=== PATIENT | male | born 1980 | race African-American/Black ===

== ENCOUNTER 2016-08-30 23:21 | Emergency (ER) | payer OTHER ==
--- NOTE | 2016-08-30 23:29 | EDPHY ---
H & P HPI/ROS: HPI CHIEF COMPLAINT: "I am dehydrated from walking today" HISTORY OF PRESENT ILLNESS: This patient very pleasant 35-year-old male significant past medical history for ulcer colitis, PTSD and attention deficit hyperactivity disorder, he presents emergency room by EMS for feeling dehydrated. Patient states that he was walking from the homeless senior care today to [facility] back to the homeless senior care did not have any other way of transportation he says it is a prolonged walk he did not take much p. o. intake today. He is concerned that he is dehydrated. Upon arrival here in the emergency room he appears well nontoxic in no acute distress. He is requesting something to drink. We have offered him water or juice he decided that he would like a soda. Explained so does not very well hydrating. He is agreeable for water. He has no focal medical complaints specifically for denies fever, chest pain, shortness of breath, dizziness, lightheadedness, generalized weakness. Past Medical History: Attention deficit hyperactivity disorder, PTSD, also colitis Past Surgical History: No recent surgical history Social History: homeless, denies drugs alcohol tobacco products, states he recently moved from [place] to [place]. Has been in [place] for 3 weeks Family History: Noncontributory ROS REVIEW OF SYSTEMS: A comprehensive 10 point review of systems is otherwise negative aside from elements mentioned in the history of present illness. Exam Constitutional appears well nontoxic, does not appeared dehydrated, well hydrated, but mucous membranes, triage nursing summary reviewed, vital signs reviewed, awake/alert. (slightly tachy 106) Eyes normal conjunctivae and sclera, EOMI, PERRLA. HENT normal inspection, atraumatic, moist mucus membranes, no epistaxis, neck supple/ no meningismus, no raccoon eyes. Respiratory clear to auscultation bilaterally, normal breath sounds, no respiratory distress, no wheezing. Cardiovascular rate normal, regular rhythm, no murmur, no edema, distal pulses normal. Gastrointestinal soft, non-tender, no rebound, no guarding, normal bowel sounds, no distension, no pulsatile mass. Genitourinary no CVA tenderness. Musculoskeletal no midline vertebral tenderness, full range of motion, no calf swelling, no tenderness of extremities, no meningismus, good pulses, neurovascularly intact. Skin pink, warm, & dry, no rash, skin atraumatic. Neurologic awake, alert and oriented x 3, AAOx3, moves all 4 extremities equally, motor intact, sensory intact, CN II-XII intact, normal cerebellar, normal vision, normal speech. Psychiatric normal mood/affect. Heme/Lymph/Immune no lymphadenopathy. Differential Diagnosis: includes but is not limited to in a particular order dehydration, electrolyte disturbance, senior care seeking. Medical Decision Making: Plan for this patient he appears well nontoxic vital signs are stable, does not appear dehydrated he will be given p.o. fluids water and at his request so to drink. We will re-evaluate him shortly. 2333: Patient is up walking around emergency room talking to staff. He is asking about a senior care. He p. o. challenge and drank water. He has no focal medical complaints. He appears well nontoxic. Does not appear acutely severely dehydrated. Does not require blood work IV establishment. Given that he is walking around emergency room talking multiple staff asking for senior care I will allow him to go home will try to provide resources for him to go to a local senior care. Source: Patient, EMS Allergies/Adverse Reactions: No Known Allergies Allergy (Unverified 08/30/16 23:27) Home Medications: Medication Instructions Recorded Adderall 10 mg Tablet 08/30/16 Departure - Departure Disposition: Home, Routine, Self-Care Clinical Impression: Dehydration symptoms Condition: Good Instructions: Dehydration (ED) Referrals: Patient,NotPresent [Primary Care Provider] - As per Instructions
[2016-08-30 23:36] VITALS: BP 144/74; PULSE 88; RESP 16; TEMP 98.6; O2SAT 96
== END 2016-08-30 23:41 | disposition home or self-care (01) ==
DX: E86.0 Dehydration (principal)

== ENCOUNTER 2016-08-31 13:55 | Inpatient (IN) | payer OTHER ==
--- NOTE | 2016-08-31 14:10 | EDPHY ---
HPI/HX/ROS/PE/MDM Narrative: CHIEF COMPLAINT: M1 Hold, gravely disabled HISTORY OF PRESENT ILLNESS: The patient is a 35-year-old male with a history of schizophrenia, PTSD, and ADHD who presents on M1 Hold by police for anxiety, paranoia, and hallucinations. Per EMS he has been seeing shadows and lights. He denies HI or SI. No fever, chills, chest pain, shortness of breath, palpitations , vomiting, diarrhea, urinary complaints, headache, lightheadedness. Patient had been brought to the ED earlier by paramedics, requesting assistance with extreme anxiety. He was responding to external stimuli, could not cooperate with requests by staff to begin his treatment. Patient wandered around ED and then left ED. He was noted to be very tachycardic by EMS. After leaving ED, patient placed on [place] hold by police for gravely disabled from his mental health issues. Very agitated on arrival to ED. No further information available from patient. REVIEW OF SYSTEMS: Unable to obtain secondary to clinical condition. PAST MEDICAL HISTORY: PTSD, ADHD, schizophrenia. Ulcerative colitis SOCIAL HISTORY: Moved to [place] from [place] 3 weeks ago. VITAL SIGNS: Reviewed by me. HR 140s. GENERAL: Well-developed, well-nourished, very anxious, paranoid, agitated, spitting on occasion. HEENT: Atraumatic. Eyes: No icterus, no injection. Flutters eyelids. Pupils 5mm. Mouth: moist mucous membranes. No erythema or lesions. Neck: supple with no adenopathy. LUNGS: Clear to auscultation bilaterally, no wheezes, rhonchi or rales. CARDIAC: Regular tachycardia, no rubs, murmurs or gallops. ABDOMEN: Soft, nontender, nondistended, bowel sounds normal. BACK: No CVA tenderness. EXTREMITIES: No trauma. No edema. Range of motion is normal throughout. NEURO: Alert, unable to assess orientation, grossly nonfocal. SKIN: Warm and dry, no rash. PSYCHIATRIC: Agitated, anxious, responding to external stimuli. Portions of this note were transcribed by a medical planner. I personally performed a history, physical exam, medical decision making, and confirmed accuracy of information the transcribed note. ED Course: This patient was initially brought in by EMS not on a hold but would not stay in his room. He appeared to be responding to external stimuli and began to throw his belongings about the room. Police were notified and he was contacted outside the hospital and placed on M1 Hold for grave disability. Upon returning he was placed in spit mask. After my exam an IV was established. 2mg IV Ativan and 10mg IM Zyprexa administered. Labs ordered. The patient is febrile at 38.3 and tachycardic. He will receive IV fluids and have additional labs drawn including lactic acid and CK/CPK. Chest x-ray ordered. CHEM panel shows creatinine of 1.4 indicating renal failure. Creatine kinase elevated at 1518 indicating rhabdomyolysis. Plan for patient admission. Suspect fever as a result of drugs/ over agitation. No clear infectious source identified. Temp resolved without treatment. Will monitor and continue to search for any infectious source. 1633: Consulted with Dr. Solano, hospitalist. She accepts admission. Fluids continued. CXR demonstrates no pneumonia, possible bronchitis. Independently viewed by me. Urine not concerning for infection. NO diarrhea noted. No complaints of abdominal pain. MDM: Diff dx considered included drug or alcohol overdose, drug or alcohol withdrawl , rhabdomyolysis, infection, sepsis, hyperthyroid, mental health disease, pneumonia. - Data Points Laboratory Results: Laboratory Results 08/31/16 15:45 08/31/16 14:25 08/31/16 08/31/16 08/31/16 15:45 15:18 15:18 WBC 15.19 10^3/uL H 10^3/uL (3.80-9.50) RBC 4.82 10^6/uL 10^6/uL (4.40-6.38) Hgb 14.3 g/dL g/dL (13.7-17.5) Hct 42.1 % % (40.0-51.0) MCV 87.3 fL fL (81.5-99.8) MCH 29.7 pg pg (27.9-34.1) MCHC 34.0 g/dL g/dL (32.4-36.7) RDW 14.3 % % (11.5-15.2) Plt Count 245 10^3/uL 10^3/uL (150-400) MPV 9.9 fL fL (8.7-11.7) Neut % (Auto) 85.2 % H % (39.3-74.2) Lymph % (Auto) 8.0 % L % (15.0-45.0) Isabella % (Auto) 6.3 % % (4.5-13.0) Eos % (Auto) 0.0 % L % (0.6-7.6) Baso % (Auto) 0.2 % L % (0.3-1.7) Nucleat RBC Rel Count 0.0 % % (0.0-0.2) Absolute Neuts (auto) 12.95 10^3/uL H 10^3/uL (1.70-6.50) Absolute Lymphs (auto) 1.22 10^3/uL 10^3/uL (1.00-3.00) Absolute Monos (auto) 0.95 10^3/uL H 10^3/uL (0.30-0.80) Absolute Eos (auto) 0.00 10^3/uL L 10^3/uL (0.03-0.40) Absolute Basos (auto) 0.03 10^3/uL 10^3/uL (0.02-0.10) Absolute Nucleated RBC 0.00 10^3/uL 10^3/uL (0-0.01) Immature Gran % 0.3 % % (0.0-1.1) Immature Gran # 0.04 10^3/uL 10^3/uL (0.00-0.10) PT 14.3 SEC SEC (12.0-15.0) INR 1.12 (0.83-1.16) APTT 32.6 SEC SEC (23.0-38.0) VBG Lactic Acid 0.9 mmol/L mmol/L (0.7-2.1) Sodium Potassium Chloride Carbon Dioxide Anion Gap BUN Creatinine Estimated GFR Glucose Calcium Total Bilirubin Conjugated Bilirubin Unconjugated Bilirubin AST ALT Alkaline Phosphatase Creatine Kinase CK-MB (CK-2) Fraction CK-MB (CK-2) % Creatine Kinase Interp Total Protein Albumin Salicylates Acetaminophen Ethyl Alcohol 08/31/16 08/31/16 14:25 14:25 WBC RBC Hgb Hct MCV MCH MCHC RDW Plt Count MPV Neut % (Auto) Lymph % (Auto) Isabella % (Auto) Eos % (Auto) Baso % (Auto) Nucleat RBC Rel Count Absolute Neuts (auto) Absolute Lymphs (auto) Absolute Monos (auto) Absolute Eos (auto) Absolute Basos (auto) Absolute Nucleated RBC Immature Gran % Immature Gran # PT INR APTT VBG Lactic Acid Sodium 144 mEq/L mEq/L (134-144) Potassium 4.7 mEq/L mEq/L (3.5-5.2) Chloride 102 mEq/L mEq/L (97-110) Carbon Dioxide 19 mEq/l L mEq/l (22-31) Anion Gap 23 mEq/L H mEq/L (8-16) BUN 12 mg/dL mg/dL (7-23) Creatinine 1.4 mg/dL H mg/dL (0.7-1.3) Estimated GFR 58 Glucose 105 mg/dL H mg/dL (70-100) Calcium 10.2 mg/dL mg/dL (8.5-10.4) Total Bilirubin 1.4 mg/dL mg/dL (0.1-1.4) Conjugated Bilirubin 0.7 mg/dL H mg/dL (0.0-0.5) Unconjugated Bilirubin 0.7 mg/dL mg/dL (0.0-1.1) AST 83 IU/L H IU/L (17-59) ALT 36 IU/L IU/L (21-72) Alkaline Phosphatase 81 IU/L IU/L (38-126) Creatine Kinase 1518 IU/L H IU/L (0-224) CK-MB (CK-2) Fraction 8.81 ng/mL H ng/mL (0-3.19) CK-MB (CK-2) % 0.6 % % (0.0-4.0) Creatine Kinase Interp NEGATIVE (NEGATIVE) Total Protein 9.0 g/dL H g/dL (6.3-8.2) Albumin 5.3 g/dL H g/dL (3.5-5.0) Salicylates < 1.0 mg/dL L mg/dL (2.0-20.0) Acetaminophen < 10 mcg/mL L mcg/mL (10.0-30.0) Ethyl Alcohol < 10 mg/dL mg/dL (0-10) Medications Given: Discontinued Medications Acetaminophen (Tylenol) 1,000 mg PO EDNOW ONE Stop: 08/31/16 15:01 Last Admin: 08/31/16 15:53 Dose: Not Given Sodium Chloride (Ns) 1,000 mls @ 0 mls/hr IV ONCE ONE PRN Reason: Wide Open Stop: 08/31/16 14:26 Last Admin: 08/31/16 14:25 Dose: 1,000 mls Sodium Chloride (Ns) 1,000 mls @ 0 mls/hr IV ONCE ONE PRN Reason: Wide Open Stop: 08/31/16 16:01 Last Admin: 08/31/16 16:01 Dose: 1,000 mls Lorazepam (Ativan Injection) 2 mg IVP EDNOW ONE Stop: 08/31/16 14:21 Last Admin: 08/31/16 14:30 Dose: 2 mg Olanzapine (Zyprexa Im Injection) 10 mg IM EDNOW ONE Stop: 08/31/16 14:28 Last Admin: 08/31/16 14:41 Dose: 10 mg General Smoking Status: Unknown if ever smoked Initial Vital Signs: Initial Vital Signs Temperature (C) 38.3 C 08/31/16 14:41 Heart Rate 128 H 08/31/16 14:41 Respiratory Rate 20 08/31/16 14:41 Blood Pressure 142/88 H 08/31/16 14:41 O2 Sat (%) 98 08/31/16 14:41 O2 Delivery Mode Nasal Cannula O2 (L/minute) 3 Allergies/Adverse Reactions: No Known Allergies Allergy (Unverified 08/30/16 23:27) Home Medications: Medication Instructions Recorded Dextroamphetamine/Amphetamine 30 mg PO DAILY 08/30/16 [Adderall Xr 30 mg Capsule] Mesalamine [Asacol HD 800 mg] 1,600 mg PO BID 08/31/16 Departure - Departure Disposition: [facility] Inpatient Acute Clinical Impression: Paranoia, Hallucinations, Renal failure Rhabdomyolysis Qualifiers: Rhabdomyolysis type: non-traumatic Qualified Code(s): M62.82 - Rhabdomyolysis Condition: Fair Report Scribed for: Maru Perdue Report Scribed by: Cb Burks Date of Report: 08/31/16 Time of Report: 14:28
[2016-08-31] MEDS ORDERED: LORazepam 2 MG/ML INJ ONE (14:19)
[2016-08-31] MEDS ORDERED: LORazepam 2 MG/ML INJ IVP ONE (14:20)
[2016-08-31] MEDS ORDERED: NS 1,000 ML IV ONE ×3 (14:25→16:15)
[2016-08-31] MEDS ORDERED: OLANZapine 10 MG/2 ML VIAL IM ONE ×2 (14:27→14:37)
[2016-08-31 14:44] LABS: ANION GAP 23 mEq/L (8-16); CALCIUM 10.2 mg/dL (8.5-10.4); CARBON DIOXIDE 19 mEq/l (22-31); CHLORIDE 102 mEq/L (97-110); CREATININE 1.4 mg/dL (0.7-1.3); ETHANOL SERUM < 10 mg/dL (0-10); GLOMERULAR FILTRATION RATE 58; GLUCOSE 105 mg/dL (70-100); POTASSIUM 4.7 mEq/L (3.5-5.2); SALICYLATE < 1.0 mg/dL (2.0-20.0); SODIUM 144 mEq/L (134-144)
[2016-08-31] MEDS ORDERED: ACETAMINOPHEN 500 MG TAB PO ONE (15:00)
[2016-08-31 15:18] LABS: ALANINE AMINOTRANSFERASE 36 IU/L (21-72); ALBUMIN 5.3 g/dL (3.5-5.0); ALKALINE PHOSPHATASE 81 IU/L (38-126); ASPARTATE AMINOTRANSFERASE 83 IU/L (17-59); BILIRUBIN,TOTAL 1.4 mg/dL (0.1-1.4); BILIRUBIN-CONJUGATED 0.7 mg/dL (0.0-0.5); BILIRUBIN-UNCONJUGATED 0.7 mg/dL (0.0-1.1)
[2016-08-31 15:38] LABS: CK-MB INTERPRETATION NEGATIVE (NEGATIVE)
[2016-08-31 15:40] LABS: CREATINE KINASE-MB FRACTION 8.81 ng/mL (0-3.19)
[2016-08-31 15:40] LABS: INR 1.12 (0.83-1.16); PROTIME(PATIENT) 14.3 SEC (12.0-15.0)
[2016-08-31 15:41] LABS: APTT 32.6 SEC (23.0-38.0)
[2016-08-31 15:58] LABS: % IMMATURE GRANULYOCYTES 0.3 % (0.0-1.1); ABSOLUTE IMMATURE GRANULOCYTES 0.04 10^3/uL (0.00-0.10); ADD DIFF? NO; ADD MORPH? NO; ADD SCAN? NO; ATYPICAL LYMPHOCYTE FLAG 20 (0-99); FRAGMENT RBC FLAG 0 (0-99); HEMATOCRIT 42.1 % (40.0-51.0); HEMOGLOBIN 14.3 g/dL (13.7-17.5); LEFT SHIFT FLG 0 (0-99); LIPEMIA HEMOLYSIS FLAG 90 (0-99); MEAN CELL HEMOGLOBIN 29.7 pg (27.9-34.1); MEAN CELL VOLUME 87.3 fL (81.5-99.8); MEAN PLATELET VOLUME 9.9 fL (8.7-11.7); PLATELET CLUMPS FLAG 0 (0-99); PLATELET COUNT 245 10^3/uL (150-400); RED BLOOD CELL COUNT 4.82 10^6/uL (4.40-6.38); RED CELL DISTRIBUTION WIDTH 14.3 % (11.5-15.2)
[2016-08-31] MEDS ORDERED: ONDANSETRON DISINTEGRATING 4 MG TAB PO PRN (17:29)
[2016-08-31] MEDS ORDERED: LORazepam 0.5 MG TAB PO PRN (17:29)
[2016-08-31] MEDS ORDERED: ONDANSETRON 4 MG/2 ML VIAL IVP PRN (17:29)
[2016-08-31] MEDS ORDERED: ACETAMINOPHEN 325 MG TAB PO PRN (17:29)
[2016-08-31] MEDS ORDERED: OLANZapine 5 MG TAB PO PRN (17:29)
[2016-08-31] MEDS ORDERED: NS 1,000 ML IV SCH (17:30)
[2016-08-31 18:06] LABS: COLOR YELLOW; LEUKOCYTE ESTERASE,URINE NEGATIVE (NEGATIVE); NITRITE,URINE NEGATIVE (NEGATIVE)
[2016-08-31 18:09] LABS: MUCUS TRACE /lpf (NONE-1+)
--- NOTE | 2016-08-31 19:14 | GHP ---
[f rep st] HISTORY AND PHYSICAL DATE OF ADMISSION: 08/31/2016 CHIEF COMPLAINT: Dehydration. HISTORY OF PRESENT ILLNESS: The patient is a 35-year-old male with a history of schizophrenia, PTSD and attention deficit disorder who recently moved to [place] from [place], [place]. He presented to the ED last night complaining of feeling dehydrated. At the time of presentation, he had reported walking from the homeless long-term to the [facility] and back to the homeless long-term without any p.o. intake. He reportedly felt very dehydrated and was requesting something to drink. At that time, he had no focal medical complaints such as fever, chills, nausea, vomiting, diarrhea, chest pain, shortness of breath, or weakness. He apparently became agitated and hallucinatory while in the emergency department and ultimately received 2 mg of IV Ativan, followed by 10 mg of IM Zyprexa. During my evaluation, the patient is unable to give me a history due to significant sedation. He is, however, protecting his airway, satting 93% on room air. History is obtained from chart review and from the emergency department physician. Given his change in status with increased anxiety, agitation, and hallucinations , there was concern for his well being, he was ultimately placed on M1 hold due to being gravely disabled. The day following his presentation, laboratory data was obtained which revealed elevated creatinine and elevated CK and a leukocytosis. At that point, the hospital medicine department was contacted for admission due to his lab abnormalities. Following the results of his labs, the patient was given 3 L of IV saline in the setting of tachycardia with a heart rate to 128. His heart rate has improved since receiving IV fluids. His chest x-ray is negative for pneumonia and shows just a mild bronchitis. He is admitted to the hospital for further management of his acute kidney injury and rhabdomyolysis. PAST MEDICAL HISTORY: 1. History of colitis. 2. Attention deficit disorder. 3. History of PTSD. 4. Schizophrenia PAST SURGICAL HISTORY: Again history is unobtainable, but there is nothing reported in the chart. SOCIAL HISTORY: Per chart review, the patient is homeless. He has denied drug , alcohol, or tobacco use. He recently moved to [place] from [place] and has been here approximately 3 weeks. FAMILY HISTORY: Noncontributory. REVIEW OF SYSTEMS: Review of systems were unobtainable due the patient's sedation. OBJECTIVE: VITAL SIGNS: Most recent temperature is 37.3, blood pressure 122/67 , heart rate 100, respiratory rate 16. He is 91% on 2 L of oxygen. GENERAL: The patient is sedated and arousable only to painful stimuli. He is not able to provide a history. HEENT: Head is atraumatic, normocephalic. Pupils equal , round, reactive to light. Extraocular muscles intact. Oropharynx is clear. Mucous membranes are moist. NECK: Supple. There is no JVD. HEART: Regular rate and rhythm without murmur. LUNGS: Reveal coarse breath sounds. ABDOMEN: Soft, nondistended, nontender with normoactive bowel sounds. EXTREMITIES: Without cyanosis, clubbing, or edema. NEUROLOGIC: Exam is grossly nonfocal. LABORATORY DATA: CBC reveals a white blood cell count of 15,000 with 85% neutrophils. INR is 1.1. Lactic acid is normal at 0.9. Complete metabolic panel is remarkable for an anion gap metabolic acidosis with a bicarb of 19 and anion gap of 23. His creatinine is 1.4. AST 83, ALT 36. His CK is 1518. Salicylates, ethyl alcohol levels are negative. Urinalysis and urine drug screen are pending as are serum osmolality and blood cultures. ASSESSMENT AND PLAN: The patient is a 35-year-old male with a history of schizophrenia and PTSD who presented to the emergency department complaining of dehydration. 18 hours later, he became acutely agitated, requiring IV Ativan and IM Zyprexa. Labs were drawn at that time which were abnormal and I am asked to admit him to the hospital for further management. 1. Acute encephalopathy. At this time, he is sedated after receiving 2 mg of IV Ativan and 10 mg of IM Zyprexa. He is protecting his airway. We will continue to monitor him and I expect his mentation will clear as these medications wear off. 2. Agitation. +H/O schizophrenia. On M1 hold due to being gravely disabled. He has a history of PTSD and ADD. UDS positive for amphetamines. He takes Adderall which we will plan to hold for now. Will continue a lower dose p.r.n. Ativan and Zyprexa as needed for recurrent agitation, and he will need a psych eval once he is medically cleared. 3. Rhabdomyolysis. This is mild. There is no history of trauma. This may be in the setting of overexertion given his long walk around the [place] with little oral intake today. He has received 3 L of normal saline. We will continue normal saline at 150 an hour and recheck this in the morning. 4. Acute kidney injury. His creatinine is 1.4. His baseline is unknown. We will check a urine sodium and urine creatinine to calculate a FENa for further evaluation. I suspect prerenal given his story of volume depletion upon presentation. IV fluids as above, and will recheck this in the morning. 5. Anion gap metabolic acidosis. Again, I suspect volume depletion as an etiology. A serum osmolality level is currently pending, but per my calculation of his serum osmolality, he does not have an increased osmolal gap which lowers my suspicion for other ingestion, such as ethylene glycol or methanol. His aspirin level is negative. His lactic acid is normal. Will hydrate as above and recheck in the morning. 6. Leukocytosis. He may be hemoconcentrated. He has received 3 L of fluids since his first labs are drawn. He is currently afebrile. His chest x-ray is clear. A urinalysis is pending. He did not present with localizing infectious symptoms. Therefore, my suspicion for an infectious process is low and his normal lactate is reassuring. We will recheck this in the morning after hydration and monitor him closely for any signs or symptoms of infection or fevers. Would draw blood cultures should he spike a fever. 7. Elevated transaminases. His AST is very mildly elevated. He has a nontender abdominal exam. His alcohol level is negative though his AST, ALT ratio could be suggestive of alcohol etiology. We will trend this for now. Should he develop abdominal pain or his LFTs trend up, would consider imaging with ultrasound. 8. Code status. Patient is full code by default. 9. DVT prophylaxis. Patient is low risk; however, should he require a prolonged hospitalization, would consider Lovenox. Will place SCDs for now given his decreased mobility in the setting of sedation. 10. Disposition. Patient is admitted to observation. If he is medically cleared tomorrow, he can undergo a psych evaluation for consideration of inpatient psych needs. /[id number]/MODL MTDD
[2016-08-31 21:06] LABS: ANION GAP 13 mEq/L (8-16); CALCIUM 8.5 mg/dL (8.5-10.4); CARBON DIOXIDE 21 mEq/l (22-31); CHLORIDE 107 mEq/L (97-110); CREATININE 1.1 mg/dL (0.7-1.3); GLOMERULAR FILTRATION RATE > 60; GLUCOSE 82 mg/dL (70-100); POTASSIUM 4.5 mEq/L (3.5-5.2); SODIUM 141 mEq/L (134-144)
[2016-08-31 21:25] LABS: CK-MB INTERPRETATION NEGATIVE (NEGATIVE)
[2016-08-31 21:44] LABS: CREATINE KINASE-MB FRACTION 6.26 ng/mL (0-3.19)
[2016-09-01 04:39] LABS: % IMMATURE GRANULYOCYTES 0.4 % (0.0-1.1); ABSOLUTE IMMATURE GRANULOCYTES 0.05 10^3/uL (0.00-0.10); ADD DIFF? NO; ADD MORPH? NO; ADD SCAN? NO; ATYPICAL LYMPHOCYTE FLAG 30 (0-99); FRAGMENT RBC FLAG 0 (0-99); HEMATOCRIT 38.2 % (40.0-51.0); HEMOGLOBIN 12.8 g/dL (13.7-17.5); LEFT SHIFT FLG 0 (0-99); LIPEMIA HEMOLYSIS FLAG 80 (0-99); MEAN CELL HEMOGLOBIN CONCENTR. 33.5 g/dL (32.4-36.7); MEAN CELL VOLUME 86.6 fL (81.5-99.8); MEAN PLATELET VOLUME 10.1 fL (8.7-11.7); PLATELET CLUMPS FLAG 10 (0-99); PLATELET COUNT 233 10^3/uL (150-400); RED BLOOD CELL COUNT 4.41 10^6/uL (4.40-6.38); RED CELL DISTRIBUTION WIDTH 14.5 % (11.5-15.2)
[2016-09-01 04:55] LABS: ALANINE AMINOTRANSFERASE 36 IU/L (21-72); ALBUMIN 3.2 g/dL (3.5-5.0); ALKALINE PHOSPHATASE 45 IU/L (38-126); ANION GAP 10 mEq/L (8-16); ASPARTATE AMINOTRANSFERASE 43 IU/L (17-59); BILIRUBIN,TOTAL 1.2 mg/dL (0.1-1.4); CALCIUM 7.4 mg/dL (8.5-10.4); CARBON DIOXIDE 17 mEq/l (22-31); CHLORIDE 114 mEq/L (97-110); CREATININE 0.9 mg/dL (0.7-1.3); GLOMERULAR FILTRATION RATE > 60; GLUCOSE 70 mg/dL (70-100); POTASSIUM 3.7 mEq/L (3.5-5.2); SODIUM 141 mEq/L (134-144); TOTAL PROTEIN 5.8 g/dL (6.3-8.2)
[2016-09-01 05:49] LABS: CK-MB INTERPRETATION NEGATIVE (NEGATIVE)
[2016-09-01 05:54] LABS: CREATINE KINASE-MB FRACTION 3.45 ng/mL (0-3.19)
[2016-09-01] MEDS: MESALAMINE 800 MG TAB.DR PO SCH ×2 (08:53→21:03)
--- NOTE | 2016-09-01 16:54 | HOSPPROG ---
Hospitalist Progress Note Assessment/Plan: # SIRS - no clear infection but borderline fever, elev WBC, and tachy; both could be explained by other mechanisms than sepsis - BCx pending, UA bland, mild bronchitis on CXR - given these symptoms, will monitor overnight # mild rhabdo - improved, downtrending # mild NAGMA - change to LR # agitation/bipolar/PTSD - on M1 hold; needs TLC eval, likely medically cleared tomorrow # low TSH with nl T3/T4 - outpatient f/u ## chart reviewed CXR personally viewed and interpreted discussed with Dr Kowalski on ICU rounds - will follow tachycardia Subjective: denies anxiety but appears nervous Objective: Vital Signs Temp Pulse Resp BP Pulse Ox 38.1 C 121 H 20 104/53 L 96 09/01/16 15:48 09/01/16 15:48 09/01/16 15:48 09/01/16 15:48 09/01/16 15:48 Laboratory Results 09/01/16 04:20 09/01/16 04:20 08/31/16 09/01/16 09/02/16 05:59 05:59 05:59 Intake Total 3950 Output Total 275 Balance 3675 PT 14.3 SEC (12.0-15.0) 08/31/16 15:18 INR 1.12 (0.83-1.16) 08/31/16 15:18 - Physical Exam Constitutional: other (anxious) Cardiovascular: no murmur, rub, or gallop, tachycardia Respiratory: no respiratory distress, no rales or rhonchi, clear to auscultation Gastrointestinal: normoactive bowel sounds, soft, non-tender abdomen, no palpable masses ICD10 Worksheet Patient Problems: Problems Problem Status Onset Paranoia Acute Hallucinations Acute Renal failure Acute Rhabdomyolysis Acute
[2016-09-01] MEDS ORDERED: LR 1,000 ML IV SCH (17:00)
[2016-09-02 04:40] LABS: % IMMATURE GRANULYOCYTES 0.4 % (0.0-1.1); ABSOLUTE IMMATURE GRANULOCYTES 0.05 10^3/uL (0.00-0.10); ADD DIFF? NO; ADD MORPH? NO; ADD SCAN? NO; ATYPICAL LYMPHOCYTE FLAG 40 (0-99); FRAGMENT RBC FLAG 0 (0-99); HEMATOCRIT 39.8 % (40.0-51.0); HEMOGLOBIN 13.8 g/dL (13.7-17.5); LEFT SHIFT FLG 0 (0-99); LIPEMIA HEMOLYSIS FLAG 90 (0-99); MEAN CELL HEMOGLOBIN 31.1 pg (27.9-34.1); MEAN CELL HEMOGLOBIN CONCENTR. 34.7 g/dL (32.4-36.7); MEAN CELL VOLUME 89.6 fL (81.5-99.8); MEAN PLATELET VOLUME 10.5 fL (8.7-11.7); PLATELET CLUMPS FLAG 0 (0-99); PLATELET COUNT 224 10^3/uL (150-400); RED BLOOD CELL COUNT 4.44 10^6/uL (4.40-6.38); RED CELL DISTRIBUTION WIDTH 14.3 % (11.5-15.2)
[2016-09-02 04:59] LABS: ANION GAP 11 mEq/L (8-16); CALCIUM 8.7 mg/dL (8.5-10.4); CARBON DIOXIDE 21 mEq/l (22-31); CHLORIDE 108 mEq/L (97-110); CREATININE 0.8 mg/dL (0.7-1.3); GLOMERULAR FILTRATION RATE > 60; GLUCOSE 96 mg/dL (70-100); POTASSIUM 4.3 mEq/L (3.5-5.2); SODIUM 140 mEq/L (134-144)
[2016-09-02] MEDS ORDERED: AZITHROMYCIN 250 MG TAB PO ONE (08:15)
[2016-09-02] MEDS: MESALAMINE 800 MG TAB.DR PO SCH (08:42)
[2016-09-02 09:58] VITALS: BP 116/74; PULSE 88; RESP 21; TEMP 98.4; O2SAT 94
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
[2016-09-03] MEDS ORDERED: AZITHROMYCIN 250 MG TAB PO SCH (09:00)
== END 2016-09-02 12:52 | disposition home or self-care (01) | DRG 884 ==
LOC: EEVIPCON 16:15 → F2N 19:40 → OBSVTOIN 09-01 16:30
PROVIDERS: ADMIT Hospitalist; ATTEND Student in an Organized Health Care Education/Training Program
DX: R45.1 Restlessness and agitation (principal); J40 Bronchitis, not specified as acute or chronic; M62.82 Rhabdomyolysis; E87.2 Acidosis; F20.9 Schizophrenia, unspecified; F43.10 Post-traumatic stress disorder, unspecified; F90.9 Attention-deficit hyperactivity disorder, unspecified type; Z59.0 Homelessness
CPT/HCPCS: 80305; 84481-90; 96374; G0378; G0480; J2060

== ENCOUNTER 2016-09-05 10:27 | Emergency (ER) | payer OTHER ==
[2016-09-05] MEDS ORDERED: NS 1,000 ML IV ONE (10:41)
--- NOTE | 2016-09-05 10:56 | EDPHY ---
H & P Smoking Status: Unknown if ever smoked Time Seen by Provider: 09/05/16 10:27 HPI/ROS: CHIEF COMPLAINT: Altered mental status HISTORY OF PRESENT ILLNESS: 35-year-old homeless male presents to the emergency department by ambulance with altered mental status. The patient has been acting paranoid and delusional. He was found at [facility] acting altered. The patient has a history of bipolar and schizophrenia. He has been seen in the hospital and was admitted 1 week ago with rhabdomyolysis and renal insufficiency. He admits to taking 2 extended release Adderall 2 hours apart earlier today. He denies chest pain or difficulty breathing. He denies any other substance abuse. He denies suicidal or homicidal ideation. Patient states that he feels very paranoid. He is seeing things. REVIEW OF SYSTEMS: Constitutional: No fever, no chills. Eyes: No double or blurry vision. ENT: No sore throat. Respiratory: No cough, no shortness of breath. Cardiac: No chest pain. Gastrointestinal: No abdominal pain, vomiting or diarrhea. Genitourinary: No dysuria. Musculoskeletal: No neck or back pain. Skin: No rashes. Neurological: No headache. (TrellKecia Kohler) Past Medical/Surgical History: Bipolar, schizophrenia, PTSD, attention deficit hyperactivity disorder, ulcerative colitis, recent admission September 01, 2016 with rhabdomyolysis and renal insufficiency (Lovely Cairina Jose F) Social History: Homeless (Kecia Cai) Physical Exam: General Appearance: Alert, no distress. 152/102, heart rate 148, 98% on room air, anxious Eyes: Pupils equal and round. Extraocular motions are all intact. ENT: Mouth: Mucous membranes moist. Respiratory: No wheezing, rhonchi, or rales, lungs are clear to auscultation. Cardiovascular: Regular rate and rhythm. Gastrointestinal: Abdomen is soft and nontender, no masses, no rebound or guarding, bowel sounds normal. Neurological: Alert and oriented to person and place. Diffuse on time. Remainder cranial nerve exam unable to test due to noncooperation from patient. Skin: Warm and dry, no rashes. Musculoskeletal: Nontender to palpate along the cervical, thoracic or lumbar spine. Neck is supple. Extremities: Full range of motion and no peripheral edema. Psychiatric: Agitated. (TrellKecia) Constitutional: Initial Vital Signs Temperature (C) 36.5 C 09/05/16 11:04 Heart Rate 148 H 09/05/16 11:04 Respiratory Rate 20 09/05/16 11:04 Blood Pressure 152/102 H 09/05/16 11:04 O2 Sat (%) 98 09/05/16 11:04 O2 Delivery Mode Room Air Allergies/Adverse Reactions: No Known Allergies Allergy (Unverified 08/30/16 23:27) Home Medications: Medication Instructions Recorded Dextroamphetamine/Amphetamine 30 mg PO DAILY 09/05/16 [Dextroamp-Amphet ER 30 mg Cap] Mesalamine [Asacol HD 800 mg] 1,600 mg PO BID 09/05/16 Medical Decision Making - Diagnostics EKG Interpretation: 12-LEAD EKG: Please see the full report in [facility]. My interpretation: Sinus rhythm, QRS 78, QT 396 (Maru Perdue) ED Course/Re-evaluation: The patient is repeatedly trying to gag himself and he is taking his fingers and pushing forcefully down in the sublingual area of his mouth. I am concerned that he is trying to hurt himself. The patient has been medically cleared. He was admitted to the hospital 1 week ago with signs of rhabdomyolysis. This has resolved. He has no signs of renal insufficiency. Laboratory studies are unremarkable. Of note his tox screen is negative. The patient was initially given Ativan IV. He also was given 10 mg of Zyprexa as itis. The patient was becoming increasingly aggressive with staff and was given 5 mg of IV Haldol. The patient was evaluated by [facility] and placed on an M1 hold. He will be admitted to [facility]. (Kecia Cai) Differential Diagnosis: Altered mental status including but not limited to hypoglycemia, infectious process, electrolyte abnormality, head injury and intoxicants. (Kecia Cai) Other Provider: The patient was evaluated and managed by the Physician Filling Layer Up/ Nurse Practitioner. I discussed the patient's presentation and course with the midlevel provider with them and agree with the evaluation. My co-signature indicates that I have reviewed this chart and I agree with the findings and plan of care as documented. I am the secondary supervising physician. I was informed around 8 o'clock that the staff at [address] [place] [address] was concerned regarding this patient's agitation and their ability to care for him. There was concerns regarding the patient's medical clearance. I discussed this patient's course at length with Dr. Linda Evangelista from [facility]. We discussed the medications that the patient has received as well as the extent of his medical clearance. Dr. Evangelista reviewed the patient's emergency department record as well as laboratory evaluation. She asked that the patient have an EKG obtained to evaluate for prolonged QT which was done. EKG has normal intervals. Patient has been quite calm and cooperative in the emergency department since 6: 00 p.m. At 11:00 p.m. I was informed that as they are short staffed from a nursing standpoint on [address] [place] [address], and concerns regarding his prior aggressive behavior, patient would not be able to be transferred to [address] [place] [address] until the morning. Patient's care was assumed by Dr. Milton Chavez at 11:00 p.m.. (Maru Perdue) - Data Points Laboratory Results: Laboratory Results 09/05/16 10:50 09/05/16 10:50 09/05/16 09/05/16 09/05/16 12:17 10:50 10:50 WBC 10.42 10^3/uL H 10^3/uL (3.80-9.50) RBC 5.03 10^6/uL 10^6/uL (4.40-6.38) Hgb 14.5 g/dL g/dL (13.7-17.5) Hct 43.1 % % (40.0-51.0) MCV 85.7 fL fL (81.5-99.8) MCH 28.8 pg pg (27.9-34.1) MCHC 33.6 g/dL g/dL (32.4-36.7) RDW 13.6 % % (11.5-15.2) Plt Count 351 10^3/uL 10^3/uL (150-400) MPV 11.0 fL fL (8.7-11.7) Neut % (Auto) 75.7 % H % (39.3-74.2) Lymph % (Auto) 16.7 % % (15.0-45.0) [place] % (Auto) 7.3 % % (4.5-13.0) Eos % (Auto) 0.0 % L % (0.6-7.6) Baso % (Auto) 0.1 % L % (0.3-1.7) Nucleat RBC Rel Count 0.0 % % (0.0-0.2) Absolute Neuts (auto) 7.89 10^3/uL H 10^3/uL (1.70-6.50) Absolute Lymphs (auto) 1.74 10^3/uL 10^3/uL (1.00-3.00) Absolute Monos (auto) 0.76 10^3/uL 10^3/uL (0.30-0.80) Absolute Eos (auto) 0.00 10^3/uL L 10^3/uL (0.03-0.40) Absolute Basos (auto) 0.01 10^3/uL L 10^3/uL (0.02-0.10) Absolute Nucleated RBC 0.00 10^3/uL 10^3/uL (0-0.01) Immature Gran % 0.2 % % (0.0-1.1) Seg Neutrophils % 78 % % Band Neutrophils % 2 % % Lymphocytes % 17 % % Monocytes % 3 % % Immature Gran # 0.02 10^3/uL 10^3/uL (0.00-0.10) Absolute Seg Neuts 8.13 10^/uL H 10^/uL (1.70-6.50) Absolute Band Neuts 0.21 10^3/uL 10^3/uL (0.00-0.70) Absolute Lymphocytes 1.77 10^3/uL 10^3/uL (1.00-3.00) Absolute Monocytes 0.31 10^3/uL 10^3/uL (0.30-0.80) RBC/WBC/PLT Morphology NORMAL (NORMAL) Atypical Lymphocytes 1+ H Platelet Estimate ADEQUATE (ADEQ) Phosphorus 3.6 mg/dL mg/dL (2.5-4.5) Urine Color YELLOW Urine Appearance MODERATELY TURBID Urine pH 6.0 (5.0-7.5) Ur Specific [place] 1.021 (1.002-1.030) Urine Protein 2+ H (NEGATIVE) Urine Ketones 1+ H (NEGATIVE) Urine Blood NEGATIVE (NEGATIVE) Urine Nitrate NEGATIVE (NEGATIVE) Urine Bilirubin NEGATIVE (NEGATIVE) Urine Urobilinogen NEGATIVE EU EU (0.2-1.0) Ur Leukocyte Esterase NEGATIVE (NEGATIVE) Urine RBC 1-3 /hpf /hpf (0-3) Urine WBC 1-3 /hpf /hpf (0-3) Ur Epithelial Cells TRACE /lpf /lpf (NONE-1+) Amorphous Sediment PRESENT /hpf /hpf (NONE-1+) Hyaline Casts 5-15 /lpf /lpf (0-1) Urine Mucus TRACE /lpf /lpf (NONE-1+) Urine Glucose NEGATIVE (NEGATIVE) Urine Opiates Screen NEGATIVE (NEGATIVE) Urine Barbiturates NEGATIVE (NEGATIVE) Ur Phencyclidine Scrn NEGATIVE (NEGATIVE) Ur Amphetamine Screen NEGATIVE (NEGATIVE) U Benzodiazepines Scrn NEGATIVE (NEGATIVE) Urine Cocaine Screen NEGATIVE (NEGATIVE) U Marijuana (THC) Screen NEGATIVE (NEGATIVE) Medications Given: Discontinued Medications Diphenhydramine HCl (Benadryl Injection) 25 mg IVP EDNOW ONE Stop: 09/05/16 17:01 Last Admin: 09/05/16 18:11 Dose: 25 mg Haloperidol Lactate (Haldol Injection) 5 mg IVP EDNOW ONE Stop: 09/05/16 13:48 Last Admin: 09/05/16 13:48 Dose: 5 mg Haloperidol Lactate (Haldol Injection) 5 mg IVP EDNOW ONE Stop: 09/05/16 16:47 Last Admin: 09/05/16 16:55 Dose: 5 mg Haloperidol Lactate (Haldol Injection) 5 mg IVP EDNOW ONE Stop: 09/05/16 17:01 Last Admin: 09/05/16 18:11 Dose: 5 mg Sodium Chloride (Ns) 1,000 mls @ 0 mls/hr IV ONCE ONE PRN Reason: Wide Open Stop: 09/05/16 10:42 Last Admin: 09/05/16 10:55 Dose: 1,000 mls Lorazepam (Ativan Injection) 1 mg IVP EDNOW ONE Stop: 09/05/16 11:20 Last Admin: 09/05/16 11:40 Dose: 1 mg Lorazepam (Ativan Injection) 2 mg IVP ONCE ONE Stop: 09/05/16 17:01 Last Admin: 09/05/16 18:11 Dose: 2 mg Olanzapine (Zyprexa Zydis) 10 mg PO EDNOW ONE Stop: 09/05/16 13:15 Last Admin: 09/05/16 13:47 Dose: 10 mg Departure - Departure Disposition: [facility] IP Clinical Impression: Paranoia, Hallucinations Schizophrenia Qualifiers: Schizophrenia type: unspecified Qualified Code(s): F20.9 - Schizophrenia, unspecified Condition: Good Referrals: Patient,NotPresent [Primary Care Provider] - As per Instructions
[2016-09-05] MEDS ORDERED: LORazepam 2 MG/ML INJ ONE ×2 (11:14→17:08)
[2016-09-05 11:17] LABS: % IMMATURE GRANULYOCYTES 0.2 % (0.0-1.1); ABSOLUTE IMMATURE GRANULOCYTES 0.02 10^3/uL (0.00-0.10); ADD DIFF? NO; ADD MORPH? NO; ADD SCAN? YES; FRAGMENT RBC FLAG 0 (0-99); HEMATOCRIT 43.1 % (40.0-51.0); HEMOGLOBIN 14.5 g/dL (13.7-17.5); LEFT SHIFT FLG 0 (0-99); LIPEMIA HEMOLYSIS FLAG 80 (0-99); MEAN CELL HEMOGLOBIN 28.8 pg (27.9-34.1); MEAN CELL HEMOGLOBIN CONCENTR. 33.6 g/dL (32.4-36.7); MEAN CELL VOLUME 85.7 fL (81.5-99.8); PLATELET CLUMPS FLAG 0 (0-99); PLATELET COUNT 351 10^3/uL (150-400); RED BLOOD CELL COUNT 5.03 10^6/uL (4.40-6.38); RED CELL DISTRIBUTION WIDTH 13.6 % (11.5-15.2)
[2016-09-05] MEDS ORDERED: LORazepam 2 MG/ML INJ IVP ONE ×2 (11:19→17:00)
[2016-09-05 11:30] LABS: ALANINE AMINOTRANSFERASE 41 IU/L (21-72); ALBUMIN 4.9 g/dL (3.5-5.0); ALKALINE PHOSPHATASE 73 IU/L (38-126); ANION GAP 20 mEq/L (8-16); ASPARTATE AMINOTRANSFERASE 43 IU/L (17-59); BILIRUBIN,TOTAL 0.8 mg/dL (0.1-1.4); BILIRUBIN-CONJUGATED 0.4 mg/dL (0.0-0.5); BILIRUBIN-UNCONJUGATED 0.4 mg/dL (0.0-1.1); CALCIUM 11.7 mg/dL (8.5-10.4); CARBON DIOXIDE 23 mEq/l (22-31); CHLORIDE 101 mEq/L (97-110); CREATININE 1.3 mg/dL (0.7-1.3); ETHANOL SERUM < 10 mg/dL (0-10); GLOMERULAR FILTRATION RATE > 60; GLUCOSE 87 mg/dL (70-100); POTASSIUM 4.4 mEq/L (3.5-5.2); SALICYLATE < 1.0 mg/dL (2.0-20.0); SODIUM 144 mEq/L (134-144); TOTAL PROTEIN 8.9 g/dL (6.3-8.2)
[2016-09-05] MEDS ORDERED: HALOPERIDOL LACT 5 MG/ML INJ ONE ×2 (11:38→16:12)
[2016-09-05 11:47] LABS: ATYPICAL LYMPHOCYTE FLAG 110 (0-99)
[2016-09-05 12:02] LABS: SCAN POSITIVE
[2016-09-05 12:05] LABS: PLATELET ESTIMATE ADEQUATE (ADEQ)
[2016-09-05 12:41] LABS: COLOR YELLOW; LEUKOCYTE ESTERASE,URINE NEGATIVE (NEGATIVE); NITRITE,URINE NEGATIVE (NEGATIVE)
[2016-09-05 12:47] LABS: AMORPHOUS PRESENT /hpf (NONE-1+); MUCUS TRACE /lpf (NONE-1+)
[2016-09-05] MEDS ORDERED: OLANZapine DISINTEGR 10 MG TAB PO ONE (13:14)
[2016-09-05] MEDS ORDERED: OLANZapine DISINTEGR 10 MG TAB ONE (13:15)
[2016-09-05] MEDS ORDERED: HALOPERIDOL LACT 5 MG/ML INJ IVP ONE ×3 (13:47→17:00)
--- NOTE | 2016-09-05 22:34 | CPEKG ---
Heart Rate: 70 RR Interval: 857 P-R Interval: 156 QRSD Interval: 78 QT Interval: 396 QTC Interval: 428 P [place]: 17 QRS [place]: 68 T [place]: 51 EKG Severity - NORMAL ECG - EKG Impression: SINUS RHYTHM Electronically Signed By: Maru Perdue 06-Sep-2016 00:43:13
[2016-09-06 08:17] VITALS: PULSE 71; RESP 18; TEMP 98.2; O2SAT 96
[2016-09-06 09:50] VITALS: BP 115/64
== END 2016-09-06 10:03 ==
LOC: EDUNIT#
DX: F20.9 Schizophrenia, unspecified (principal)
CPT/HCPCS: 93005; 96361; 96374; 96375; 96376; 99285; J1200; J2060; 80305; G0480